=== PATIENT | female | born 1980 | race American Indian/Alaskan Native ===

== ENCOUNTER 2018-02-27 07:21 | Emergency (ER) | payer SELFPAY ==
[2018-02-27] MEDS ORDERED: D5NS 0.2% 1,000 ML IV SCH (08:00)
[2018-02-27 08:51] LABS: Basophils # (Auto) 0.1 K/mm3 (0.0-0.1); Basophils % (Auto) 0.8 % (0.0-1.8); Eosinophils # (Auto) 0.3 K/mm3 (0.0-0.4); Eosinophils % (Auto) 3.4 % (0.0-4.3); Hematocrit 29.2 % (30.3-42.9); Hemoglobin 10.7 gm/dl (10.1-14.3); Lymphocytes # (Auto) 2.6 K/mm3 (1.2-5.4); Lymphocytes % (Auto) 26.4 % (13.4-35.0); Mean Corpuscular HGB Conc 37 % (30-34); Mean Corpuscular Hemoglobin 30 pg (28-32); Mean Corpuscular Volume 81 fl (79-97); Monocytes # (Auto) 0.8 K/mm3 (0.0-0.8); Monocytes % (Auto) 8.6 % (0.0-7.3); Platelet Count 243 K/mm3 (140-440); Red Blood Count 3.62 M/mm3 (3.65-5.03); Red Cell Distribution Width 14.3 % (13.2-15.2)
[2018-02-27] MEDS ORDERED: DILAUDID IV ONE ×2 (11:00→12:11)
--- NOTE | 2018-02-27 11:00 | Emergency Department Report ---
ED General Adult HPI - General Chief complaint: Sickle Cell Crisis Stated complaint: SICKEL CELL CRISIS/NUMBNESS Time Seen by Provider: 02/27/18 10:54 Source: patient, RN notes reviewed Mode of arrival: Ambulatory Limitations: No Limitations - History of Present Illness Initial comments: This is a 37-year-old female who is not known to this provider, reports a past medical history of sickle cell disease, reports that she is not , recently moved back to [place] after living in [place] for 2 years. Presents to the ER with complaint of sickle cell crisis, where she describes right shoulder pain, right arm pain, as well as numbness to the fingertips of her thumb, point to finger and middle finger. Pain is sharp, increases with palpation, decreases with hydromorphone, does not radiate anywhere. She reports her typical triggers include cold weather, and changes seasons. She denies cough, sore throat, abdominal pain, chest pain and urinary symptoms. -: Gradual Location: right, upper extremity Radiation: non-radiation Quality: stabbing, sharp Consistency: constant Improves with: medication, rest Worsens with: movement Associated Symptoms: malaise, other (see history of present illness). denies: confusion, chest pain, cough, diaphoresis, fever/chills, headaches, loss of appetite, nausea/vomiting, rash, seizure, shortness of breath, syncope, weakness - Related Data Previous Rx's Medication Instructions Recorded Last Taken Type Acetaminophen [Tylenol Arthritis] 650 mg PO Q6HR PRN #30 tablet.er 02/27/18 Unknown Rx Ibuprofen [Motrin] 600 mg PO Q8H PRN #30 tablet 02/27/18 Unknown Rx oxyCODONE [Roxicodone] 5 mg PO Q6HR PRN #10 tablet 02/27/18 Unknown Rx Allergies Allergy/AdvReac Type Severity Reaction Status Date / Time No Known Allergies Allergy Verified 02/27/18 07:36 ED Review of Systems ROS: Stated complaint: SICKEL CELL CRISIS/NUMBNESS Other details as noted in HPI Comment: All other systems reviewed and negative ED Past Medical Hx - Past Medical History Hx Sickle Cell Disease: Yes Additional medical history: Arthritic necrosis - Surgical History Hx Cholecystectomy: Yes Additional Surgical History: C/S - Social History Smoking Status: Current Every Day Smoker Substance Use Type: None - Medications Home Medications: Home Medications Medication Instructions Recorded Confirmed Last Taken Type Acetaminophen [Tylenol Arthritis] 650 mg PO Q6HR PRN #30 tablet.er 02/27/18 Unknown Rx Ibuprofen [Motrin] 600 mg PO Q8H PRN #30 tablet 02/27/18 Unknown Rx oxyCODONE [Roxicodone] 5 mg PO Q6HR PRN #10 tablet 02/27/18 Unknown Rx ED Physical Exam - General Limitations: No Limitations General appearance: alert, in distress - Head Head exam: Present: atraumatic, normocephalic - Eye Eye exam: Present: normal appearance, EOMI. Absent: scleral icterus - ENT ENT exam: Present: normal exam, normal orophraynx, mucous membranes moist, normal external ear exam - Neck Neck exam: Present: normal inspection, full ROM. Absent: tenderness, meningismus - Respiratory Respiratory exam: Present: normal lung sounds bilaterally. Absent: respiratory distress - Cardiovascular Cardiovascular Exam: Present: regular rate, normal rhythm, normal heart sounds. Absent: bradycardia, tachycardia, irregular rhythm, systolic murmur, diastolic murmur, rubs, gallop - GI/Abdominal GI/Abdominal exam: Present: soft. Absent: distended, tenderness, guarding, rebound, rigid, pulsatile mass - Extremities Exam Extremities exam: Present: normal inspection, full ROM, tenderness, normal capillary refill, other (there is no bony tenderness in the right upper extremities. There is no swelling in the right upper extremity. The compartments are soft. 2+ pulses noted in the bilateral upper, lower extremities. There is full range of motion bilateral shoulders, elbows, wrist. Sensation is intact to light touch in the bilateral deltoid, median, radial, ulnar distribution.). Absent: pedal edema, joint swelling, calf tenderness ( the pelvis is stable. There is no lower stomach tenderness in the bilateral lower extremities.) - Back Exam Back exam: Present: normal inspection, full ROM. Absent: tenderness, CVA tenderness (R), paraspinal tenderness, vertebral tenderness - Neurological Exam Neurological exam: Present: alert, oriented X3, CN II-XII intact, normal gait, other (Extraocular movements intact. Tongue midline. No facial droop. Facial sensation intact to light touch in the V1, V2, V3 distribution bilaterally. 5 and 5 strength in 4 extremities.. Sensation is intact to light touch in 4 extremities.). Absent: motor sensory deficit - Psychiatric Psychiatric exam: Present: anxious - Skin Skin exam: Present: warm, dry, intact, normal color. Absent: rash ED Course Vital Signs 02/27/18 02/27/18 02/27/18 07:30 11:31 11:41 Temperature 98.2 F Pulse Rate 77 Respiratory 16 Rate Blood Pressure 119/70 116/79 O2 Sat by Pulse 100 99 97 Oximetry 02/27/18 12:21 Temperature Pulse Rate Respiratory Rate Blood Pressure 108/59 O2 Sat by Pulse 99 Oximetry - Reevaluation(s) Reevaluation #1: 02/27/18 13:23 The patient has been in the ER for 6 hours without clinical decompensation. She 'll be discharged at this time. ED Medical Decision Making - Lab Data Result diagrams: 02/27/18 07:56 Vital Signs 02/27/18 07:30 Temperature 98.2 F Pulse Rate 77 Respiratory 16 Rate Blood Pressure 119/70 O2 Sat by Pulse 100 Oximetry Lab Results 02/27/18 Range/Units 07:56 WBC 9.9 (4.5-11.0) K/mm3 RBC 3.62 L (3.65-5.03) M/mm3 Hgb 10.7 (10.1-14.3) gm/dl Hct 29.2 L (30.3-42.9) % MCV 81 (79-97) fl MCH 30 (28-32) pg MCHC 37 H (30-34) % RDW 14.3 (13.2-15.2) % Plt Count 243 (140-440) K/mm3 Lymph % (Auto) 26.4 (13.4-35.0) % Thomas % (Auto) 8.6 H (0.0-7.3) % Eos % (Auto) 3.4 (0.0-4.3) % Baso % (Auto) 0.8 (0.0-1.8) % Lymph # 2.6 (1.2-5.4) K/mm3 Thomas # 0.8 (0.0-0.8) K/mm3 Eos # 0.3 (0.0-0.4) K/mm3 Baso # 0.1 (0.0-0.1) K/mm3 Seg Neutrophils % 60.8 (40.0-70.0) % Seg Neutrophils # 6.0 (1.8-7.7) K/mm3 Percent Retic 4.58 H (0.78-2.58) % - Medical Decision Making Differential diagnosis, including when not limited to: Peripheral neuropathy, sickle cell crisis Assessment and plan: 37-year-old female who endorses complaint of fingertip numbness, has an NIH score of 0, physical examination not suggestive of cellulitis, fracture or compartment syndrome, with reported sickle cell crisis. She is afebrile and vital signs. Her pain was treated aggressively, her vital signs remained stable, and her neurologic examination remains within normal limits. The patient will be instructed to follow up with outpatient hematology. Critical care attestation.: If time is entered above; I have spent that time in minutes in the direct care of this critically ill patient, excluding procedure time. ED Disposition Clinical Impression: Finger numbness, Sickle cell anemia with crisis Disposition: TO HOME OR SELFCARE Is pt being admited?: No Does the pt Need Aspirin: No Condition: Stable Instructions: Sickle Cell Crisis (ED) Additional Instructions: Rest, and avoid heavy lifting. Avoid strenuous physical activity. Take the pain medication as directed. Do not consume alcohol, operate motor vehicles or make important decisions when taking the oxycodone. 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 Return to the ER right away with new pain, worsened pain, migration of pain, projectile vomiting, change in mental status, confusion, inability to tolerate liquid feeds. Prescriptions: Acetaminophen [Tylenol Arthritis] 650 mg PO Q6HR PRN #30 tablet.er PRN Reason: Pain Ibuprofen [Motrin] 600 mg PO Q8H PRN #30 tablet PRN Reason: Pain oxyCODONE [Roxicodone] 5 mg PO Q6HR PRN #10 tablet PRN Reason: Pain Referrals: PRIMARY CARE, [Primary Care Provider] - 3-5 Days AYANA ORTA DO [Staff Physician] - 3-5 Days
[2018-02-27 14:01] VITALS: BP 102/62
== END 2018-02-27 14:10 | disposition home or self-care (01) ==
LOC: ED 07:21
DX: D57.00 Hb-SS disease with crisis, unspecified (principal); R20.0 Anesthesia of skin; F17.200 Nicotine dependence, unspecified, uncomplicated
CPT/HCPCS: 36415; 85025; 85045; 96374; 96376; 99283; J1170